=== PATIENT | female | born 1970 | race Caucasian/White ===

== ENCOUNTER 2019-05-11 07:06 | Day surgery (SDC) | payer OTHER, SELFPAY ==
--- NOTE | 2019-05-11 06:50 | W.PM.DSUDISC ---
Discharge Plan Disposition Patient Disposition: HOME Condition: Good Discharge Details Reason For Visit: RIGHT Trigger Thumb Attending Provider: Edwin Gonzalez Primary Care Provider: Gage Jeffrey Home Meds and New Rx's Prescriptions: New acetaminophen 500 mg tablet 1,000 mg PO Q8H PRN (Reason: pain) Qty: 60 RF: 3 ibuprofen 600 mg tablet 600 mg PO TID PRNQty: 60 RF: 3 Continued Mirena 1 EACH intrauterine device 1 ea Intrauterine ONCE RF: 0 Discharge Instructions Stand Alone Forms: Carlos Melgar Finger Release Referrals: Edwin Gonzalez MD [ [facility] STAFF PHYSICIAN] - Activity:: Elevate Remove Dressings/Wound Care:: 48 hours Shower/Bathe:: 48 hours Discharge Orders Discharge Orders: Discharge Order (Routine); Ordered 05/11/19 Ordered By: Edwin Gonzalez DS: Diagnosis Discharge Diagnosis (1) Trigger finger: Status: Acute
[2019-05-11 07:14] VITALS: BP 133/89; PULSE 77; RESP 16; TEMP 37.5; O2SAT 97
[2019-05-11] MEDS: Sodium Bicarbonate 50 MEQ/50 ML VIAL (08:24)
--- NOTE | 2019-05-11 08:33 | ROE_ITS ---
Date of service: 05/11/19 Time of Service: 08:33 Operative Note Operative Note DATE OF PROCEDURE: 05/11/19 PRE-OP DIAGNOSIS: Right Trigger Thumb POST-OP DIAGNOSIS: same PROCEDURE: Trigger Finger Release - Right Thumb SURGEON: Edwin Gonzalez ANESTHESIA: local ESTIMATED BLOOD LOSS: 5 PATHOLOGY: none sent COMPLICATIONS: None Patient was transported to: same day Patient's condition: stable Indications: I have seen Bridgette in clinic for symptoms of a trigger finger. The catching, clicking, locking, and pain limited function. The diagnosis of trigger finger was evident. The symptoms had not responded to conservative measures. I discussed trigger finger release with the patient. I reviewed the risks of the procedure to include, but not limited to, bleeding, infection, pain, stiffness, incomplete release, damage to nerves or vessels, continued catching, recurrence. Despite these risks, the patient elected to proceed. Findings: There was a tightened A1 emily which was released. The flexor tendons were inspected and the patient was able to move the thumb without any catching, clicking, or locking. There was some fraying of the flexor tendon which was debrided. Procedure Description: Bridgette was greeted in the preoperative holding area where the correct side was identified and marked. The consent was reviewed with the patient and signed. All questions were answered. She was taken back to the operating room. The patient was placed into the supine position on the operating room table with the right arm on an arm board. All bony prominences were well padded. No prophylactic antibiotics were administered since this was a clean, elective hand surgical case. The right arm was then prepped with Chloraprep and draped in a standard fashion with stockinette and extremity drape. A timeout to confirm correct identity, side and site, procedure, allergies, anesthesia, and medical concerns was performed. The surgical site was marked as a longitudinal incision directly over the A1 emily of the involved digit. This was confirmed with palpation during finger flexion. This area, overlying the metacarpal head, was then anesthetized with 1% Lidocaine. The patient tolerated this well and once the anesthetic had setup, the procedure began. A longitudinal incision was made through skin only, approximately 1cm. The deep tissues were dissected bluntly. Once the A1 emily and flexor tendons were identified the soft tissue including neurovascular structures were retracted medially and laterally. There were no crossing structures over the A1 emily. The proximal edge of the emily was identified and the emily was incised with tenotomy scissors. The emily was very thickened and difficult to release. There was a visible release of the tendons once the pully was fully incised. The tendons were then removed from the wound and inspe cted. There was some fraying identified which was debrided sharply. The tendons were then returned and the patient was asked to move the finger into deep flexion and back to extension. There was no recreation of the pre- operative symptoms. The hand was then once more inspected for any A0 emily or area of possible constriction. The wound was then irrigated and the skin was closed with a 4-0 Nylon. This was dressed with gauze and a Conform dressing. The patient tolerated the procedure well and was returned to the Same Day Surgery area in a stable condition suffering no known complication.
[2019-05-11 09:00] VITALS: BP 134/92; PULSE 70; RESP 18; TEMP 36.6; O2SAT 99
--- NOTE | 2019-05-11 11:03 | NUR.NOTE ---
Nursing Note: This nurse forgot to give an apt card for the pt's follow up apt time with [facility]. This nurse called the pt's cell phone and left a message stating that the date and time of her follow up was 05/19 at 0930. The number for both [facility] and the DSU was left on the message.
== END 2019-05-11 09:05 | disposition home or self-care (01) ==
LOC: SUR 07:06
PROVIDERS: PCP Internal Medicine Sleep Medicine; Visit Provider Student in an Organized Health Care Education/Training Program
PROC: (CPT 26055; principal; 2019-05-11 08:15)
DX: M65.311 Trigger thumb, right thumb (principal)
CPT/HCPCS: 26055

== ENCOUNTER 2019-06-09 09:04 | Outpatient (REF) | payer OTHER, SELFPAY ==
--- NOTE | 2019-06-09 08:20 | PAPFT_PTH ---
PATIENT: Bridgette Rondon LOC: [facility] U#:[id number] AGE/SX: 48/F ROOM: RE06/09/[address]: BETITO Alvarez : 1970 BED: DIS: 06/09/2019 SPEC #: [id number] RECD: 06/10/19 12:55 STATUS: LINO REPascual #: [id number] TG: 06/09/19 08:[address]: Kinsey Ewing DEPT: [facility] Cytology RECD BY: Mony Daniels ENTERED: 06/10/19 12:55 SP TYPE: PAPFT OTHR DR: Gage Jeffrey Tissues: 1 - CX/ENDOCX FOR PAP SMEARS Procedures: PAP THIN PREP/UVM Screening HPV DNA PROBE Comments: [id number]
[2019-06-10 13:56] LABS: Chlamydia Result Negative (Negative); GC Result Negative (Negative)
== END 2019-06-09 09:24 ==
LOC: LBN 09:04
PROVIDERS: PCP Internal Medicine Sleep Medicine; Visit Provider Nurse Practitioner Family
DX: Z11.3 Encounter for screening for infections with a predominantly sexual mode of transmission (principal); Z12.4 Encounter for screening for malignant neoplasm of cervix
CPT/HCPCS: 87491; 87591; 88142; 87624

== ENCOUNTER 2019-07-11 01:33 | Outpatient (CLI) | payer OTHER, SELFPAY ==
--- NOTE | 2019-07-11 08:00 | DI.MAMMO_ITS ---
EXAM: MG MAMMO SCREENING CLINICAL HISTORY: screening. TECHNIQUE: Full field digital CC and MLO mammographic images were obtained with 3D tomosynthesis and utilizing computer aided detection (CAD). COMPARISON: 2010 to 2017 FINDINGS: Breast Density - Category B - Scattered areas of fibroglandular density Masses/Architectural Distortion: None seen. Microcalcifications: No suspicious pleomorphic-type calcifications are seen. Skin Thickening/Nipple Retraction: None. Axilla: Unremarkable. IMPRESSION: 1. BI-RADS category 1, negative. No significant interval change with no specific features of maligna ncy noted. 2. Unless there is more urgent need, screening mammography is recommended, as per [employer] guidelines. A negative radiographic report should not delay biopsy if a dominant or clinically suspicious mass is present. Up to ten percent of cancers are not identified on mammography. A negative report may reinforce clinical impression. Adenosis and dense breasts may obscure an underlying neoplasm. False positive reports average 6 to 10%. Patient will receive a letter notifying them of these results.
== END 2019-07-11 01:53 ==
PROVIDERS: PCP Family Medicine; Visit Provider Nurse Practitioner Family
DX: Z12.31 Encounter for screening mammogram for malignant neoplasm of breast (principal)
CPT/HCPCS: 77063; 77067

== ENCOUNTER 2021-01-31 06:39 | Emergency (ER) | payer OTHER, SELFPAY ==
[2021-01-31 06:42] VITALS: BP 168/111; PULSE 87; RESP 18; TEMP 36.3; O2SAT 97
--- NOTE | 2021-01-31 06:45 | RT.EKG_ITS ---
APPROVED REPORT Exam: Resting ECG Reason for Exam: HTN Patient Location: E HR:69 bpm ECG Measurements Heart Rate 69 AXIS VA 137 P 36 QRSd 80 QRS 0 QT 373 T 13 QTc 399 Conclusion Sinus rhythm...normal P axis, V-rate 60- 99 Rate 69, sinus rhythm, no significant ST elevations or depressions. Inverted T waves present in lead III, questionable Q wave in lead III. No STEMI
--- NOTE | 2021-01-31 07:07 | ED.GENADUL_ITS ---
Discharge Plan Disposition Patient Disposition: HOME Condition: Good Discharge Details Clinical Impression: Fatigue, Malaise Primary Care Provider: Tino Donnelly ED Provider: Adryan Yip Home Meds and New Rx's Prescriptions: No Action No Known Home Meds RF: 0 Discharge Instructions Additional Instructions: Please follow-up with your primary care provider at your scheduled appointment today. We did send some test that will not be back for a few days, including a tickborne illness and Lyme disease panel. Please follow-up with your primary care provider about these results. If you notice any worsening of your symptoms, or any new symptoms such as vomiting, diarrhea, fever, chills, shortness of breath, chest pain, numbness, weakness, or fainting , please return immediately to the emergency department for reevaluation. Please follow up with your primary care provider as soon as possible for reassessment and reevaluation. As always, it was a pleasure pa rticipating in your medical care today. Referrals: Tino Donnelly [Primary Care Provider] - Medical Decision Making <Elier Chaves DO - Last Filed: 01/31/21 07:29> 50-year-old female with no significant past medical history presents today for evaluation of malaise, nausea. Feeling unwell. Patient states that 2 months ago she had her IUD removed. Since then every time she has had. She becomes very fatigued and has the symptoms of mild headache nausea and feeling unwell. She has also noticed that her blood pressure has been elevated. She admits to a single episode of vomiting, she denies any diarrhea or fever. She denies any chest pain or shortness of breath. She denies any numbness, tingling, or focal weakness. Her menses have been heavier than normal, but she denies any excessive bleeding. In the distant past she had a history of thyroid dysfunction but states that this is 6 now. She denies any other complaints. No other modifying factors. Exam demonstrates no focal neurologic deficits, no abdominal tenderness, normal lung sounds. No thyromegaly. Uncertain as to what the exact cause of the patient's symptomatology is, symptoms appearing consistent with a hypertensive emergency. Thyroid dysfunction cardiac etiology is highest on the list. Viral etiology and tickborne illness is also in the differential. We will gently rehydrate, evaluate for concerning etiologies, monitor closely and reassess. EKG 7: 40 Rate 69, sinus rhythm, no significant ST elevations or depressions. Inverted T waves present in lead III, questionable Q wave in lead III. No STEMI. <Adryan Yip MD - Last Filed: 01/31/21 08:31> pt's labs unremarkable and remains stable, has mild headache and no other significant symptoms, headache is not thunderclap and not the worst of her life, no fevers or neck stiffness and no meningismus so doubt ich and emergency room tech infection at this time. Discussed jose carlos results with patient and she is comfortable with d/c and has f/u today with pcp and will recheck BP. Return precautions given Lab Data Lab results reviewed: Yes I reviewed the patient's lab results. HPI <Elier Chavse DO - Last Filed: 01/31/21 07:29> General Date/Time Provider Initiated Documentation: 01/31/21 06:52 . HPI Narrative: 50-year-old female with no significant past medical history presents today for evaluation of malaise, nausea. Feeling unwell. Patient states that 2 months ago she had her IUD removed. Since then every time she has had. She becomes very fatigued and has the symptoms of mild headache nausea and feeling unwell. She has also noticed that her blood pressure has been elevated. She admits to a single episode of vomiting, she denies any diarrhea or fever. She denies any chest pain or shortness of breath. She denies any numbness, tingling, or focal weakness. Her menses have been heavier than normal, but she denies any excessive bleeding. In the distant past she had a history of thyroid dysfunction but states that this is 6 now. She denies any other complaints. No other modifying factors. 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 Surgical History colonoscopy (~2001) Open Carpal Tunnel release 1995 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 Family History Mother Lymphoma Father Personal history of malignant neoplasm Other Diabetes Social History Smoking/Tobacco Use Status: Former Tobacco Use Smoking risk assessment performed?: Yes Alcohol Intake: current Alcohol Intake frequency: a few times a week Drug use: Daily Substance use type: marijuana Do you feel safe at home: Yes Do you feel safe in your relationship?: Yes Female Reproductive History Menstrual control method: progestin IUCD Exam <Elier Chaves DO - Last Filed: 01/31/21 07:29> Narrative Exam Narrative: 1.Const: Well-nourished, Well-developed, appearing stated age 2.Eyes: PERRL, no conjunctival injection, and symmetrical lids. 3.ENT: Atraumatic external nose and ears. Moist MM. Neck: Symmetric, trachea midline, No thyromegaly. 4.CVS: +S1/S2, No murmurs or gallops. Peripheral pulses 2+ and equal in all extremities. Brisk capillary refill in all extremities. 5.RESP: Unlabored respiratory effort. Clear to auscultation bilaterally. No wheezes rales or rhonchi 6.GI: Soft, Nontender/Nondistended, No hepatosplenomegaly. No guarding or rebound. 7.MSK: Normocephalic/Atraumatic, Extremities w/o deformity or ttp No cyanosis or clubbing, Normal movement of all extremities 8.Skin: Warm, Dry. No rashes or lesions. 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 Sensation grossly intact, no focal neurologic deficits. 10.Psych: (AAO) x3. Appropriate mood and affect Course <Elier Chaves DO - Last Filed: 01/31/21 07:29> Vital Signs Vital signs: Vital Signs Temperature 36.3 C L 08/19/21 06:42 Pulse 87 01/31/21 06:42 Respiratory Rate 18 01/31/21 06:42 Blood Pressure 168/111 H 01/31/21 06:42 Pulse Oximetry 97 01/31/21 06:42 Temperature 36.3 C L 01/31/21 06:42 Temperature Source Temporal Artery Scan 01/31/21 06:42 Pulse 87 01/31/21 06:42 Respiratory Rate 18 01/31/21 06:42 Respiratory Effort Non-Labored 01/31/21 06:50 Blood Pressure 168/111 H 01/31/21 06:42 Blood Pressure Position Sitting 01/31/21 06:42 Pulse Oximetry 97 01/31/21 06:42 Oxygen Delivery Method Room Air 01/31/21 06:42 Oxygen Flow Rate 0 01/31/21 06:42 Pain Level 6 01/31/21 06:42 Sign Out <Elier Chaves DO - Last Filed: 01/31/21 07:29> Sign Out Data: Sign Out Comment: Follow-up on labs, expected discharge Last updated by Elier Chaves DO at 01/31/21 07:45
[2021-01-31] MEDS: Normal Saline 500 ML IV (07:29)
[2021-01-31 07:30] VITALS: RESP 18
[2021-01-31 07:38] LABS: Abs Immature Grans 0.02 10^3/uL (0.0-0.06); Absolute Basophil Count 0.09 10^3/uL (0.0-0.2); Absolute Eosinophil Count 0.17 10^3/uL (0.0-0.7); Absolute Lymphocyte Count 2.04 10^3/uL (1.2-3.4); Absolute Monocyte Count 0.64 10^3/uL (0.1-0.8); Absolute Neutrophil Count 4.52 10^3/uL (1.2-6.7); Basophils % 1.2; Eosinophils % 2.3; HCT 44.8 % (36.0-46.0); HGB 14.8 g/dL (11.2-15.7); Immature Grans % 0.3; Lymphocytes % 27.3; MCV 90.7 fL (80-95); MPV 9.6 fL (8.0-11.0); Monocytes % 8.6; Neutrophils % 60.3; Nucleated RBC 0 %; Platelet Count 332 10^3/uL (130-400); RBC 4.94 10^6/uL (3.93-5.22); RDW 12.5 % (11.7-14.6); RDW-SD 41.7 fL; WBC 7.48 10^3/uL (4.4-10.8)
[2021-01-31 07:49] LABS: Bilirubin Negative (Negative); Blood Negative (Negative); Clarity Clear (Clear); Glucose Negative (Negative); Ketones Negative (Negative); Leukocyte Esterase Negative (Negative); Nitrite Negative (Negative); Urobilinogen 0.2 EU/dL (Up TO 0.2); pH 5.5 (5-8)
[2021-01-31 07:51] LABS: Mono Screening Negative (Negative)
[2021-01-31 07:57] LABS: Lipase 99 U/L (73-393)
[2021-01-31 07:59] LABS: ALT 28 U/L (14-59); AST 17 U/L (15-37); Albumin 3.6 g/dL (3.4-5.0); Alkaline Phosphatase 59 U/L (46-116); Anion Gap 6.8 mmol/L (3-11); BUN 8 mg/dL (7-18); Bilirubin, Total 0.4 mg/dL (0.2-1.0); CO2 27.2 mmol/L (21.0-32.0); CREATININE 0.7 mg/dL (0.55-1.02); Calcium 8.5 mg/dL (8.5-10.1); Chloride 105 mmol/L (98-107); Glucose 102 mg/dL (74-106); Potassium 3.9 mmol/L (3.5-5.1); Sodium 139 mmol/L (136-145); Total Protein 7.1 g/dL (6.4-8.2)
[2021-01-31 08:04] LABS: Ammonia < 10 umol/L (11-32); Troponin I < 0.05 ng/mL (<0.06)
[2021-01-31] MEDS: Ondansetron 4 MG/2 ML VIAL (08:07)
[2021-01-31 08:11] LABS: TSH (W/Ref FT4) 3.11 uIU/mL (0.36-3.74)
[2021-01-31 08:31] VITALS: BP 120/61; PULSE 66; RESP 20; TEMP 36.1; O2SAT 99
[2021-01-31 08:38] VITALS: BP 154/101; PULSE 70; O2SAT 97
[2021-02-01 11:23] LABS: Lyme Ab w Rflx to Lyme Confirm Negative (Negative)
[2021-02-02 21:21] LABS: Anaplasma phagocytophilum Negative (Negative); B. miyamotoi PCR Negative (Negative); Babesia divergens/MO-1 Negative (Negative); Babesia duncani Negative (Negative); Babesia microti Negative (Negative); Ehrlichia chaffeensis Negative (Negative); Ehrlichia ewingii/canis Negative (Negative); Ehrlichia muris eauclairensis Negative (Negative)
== END 2021-01-31 08:45 | disposition home or self-care (01) ==
PROVIDERS: Student in an Organized Health Care Education/Training Program; Emergency Provider Emergency Medicine; PCP Family Medicine
DX: R53.83 Other fatigue (principal); I10 Essential (primary) hypertension; R53.81 Other malaise; R51.9 Headache, unspecified
CPT/HCPCS: 36415; 80053; 81025; 83690; 87798; 93005; 96361; 96374; 99284; 81003; 82140; 84443; 84484; 85025; 86308; 86618; 93010; J2405

== ENCOUNTER 2021-02-06 01:46 | Outpatient (CLI) | payer OTHER, SELFPAY ==
--- NOTE | 2021-02-06 06:45 | DI.MAMMO_ITS ---
Exam(s) MAMMO SCREENING EXAM: MAMMO SCREENING CLINICAL HISTORY: screening, Z12.39. TECHNIQUE: Bilateral full field digital CC and MLO mammographic images were obtained with 3D tomosyn thesis and utilizing computer aided detection (CAD). COMPARISON: Prior mammograms dating back to 2010, the most recent being June 2019. FINDINGS: There are no CAD designations No new significant radiograph findings in right breast. In the left breast there are 2 nodular densities. The more posterior in larger of these 2 is unchang ed from prior studies. More anteriorly there is a round noncalcified 4 millimeter nodule located 6 cm in from the nipple on the 3D cc view, not evident on prior mammograms. Spot compression view and ultrasound recommended. Malignant-appearing microcalcification groups in this region or elsewhere in either breast. There is no new architectural distortion or skin thickening-traction. IMPRESSION: 1. No radiographic evidence of malignancy in right breast 2. 4 millimeter left breast nodule now evident, this located 6 cm in from nipple seen on the CC view. Recommend ultrasound determine if this is solid or cystic. A slightly larger nodule more posterior ly in the left breast is unchanged from prior studies BI-RADS Category 0 - Assessment Incomplete: Need additional imaging evaluation Breast Density - Category B - Scattered areas of fibroglandular density Breast density Category C or D implies that the patient has dense breast tissue. Dense breast tissue can make it harder to find cancer on a mammogram. Dense breast tissue is also associated with an incr eased risk of breast cancer. This information about the result of the mammogram report was provided to the patient to raise their awareness. Use this report when you speak with the patient about their risks for breast cancer, which includes their family history. At that time, you may recommend additional screening tests (Ultrasoun d or MRI) as these tests may add significant information. A negative radiographic report should not delay biopsy if a dominant or clinically suspicious mass is present. Up to ten percent of cancers are not identified on mammography. A negative report may reinforce clinical impression. Adenosis and dense breasts may obscure an underlying neoplasm. False positive reports average 6 to 10%. Patient will receive a letter notifying them of these results.
== END 2021-02-06 02:06 ==
PROVIDERS: PCP Family Medicine; Visit Provider Nurse Practitioner Family
DX: Z12.31 Encounter for screening mammogram for malignant neoplasm of breast (principal); R92.8 Other abnormal and inconclusive findings on diagnostic imaging of breast; N63.20 Unspecified lump in the left breast, unspecified quadrant
CPT/HCPCS: 77063; 77067

== ENCOUNTER 2021-02-12 01:53 | Outpatient (CLI) | payer OTHER, SELFPAY ==
--- NOTE | 2021-02-12 | DI.MAMMO_ITS ---
Exam(s) MG MAMMO SCREEN CALL BACK UNI US BREAST LT LIMITED EXAM: MG MAMMO SCREEN CALL BACK UNI and U/S breast LT limited CLINICAL HISTORY: F/U MAMMO, NEW 4 MM LT BREAST NODULE,UNCHANGED PREVIOUS NODULE. TECHNIQUE: Craniocaudal and mediolateral oblique Full Field Digital Mammography views of the left br east with Computer Aided Diagnosis followed by Tomosynthesis and left breast ultrasound. COMPARISON: Priors available for comparison. FINDINGS: Mammography/Tomosynthesis: Masses/Architectural Distortion: The posterior central left breast nodule is again visualized and is unchanged compared to the prior examination. The more anteriorly described nodule is not visualized on the additional views. Microcalcifictions: No suspicious pleomorphic-type are seen. Skin Thickening/Nipple Retraction: None. Left breast US: All 4 quadrants and the left axilla were evaluated sonographically. Echotexture: Normal appearance of the glandular tissue. Shadowing: No suspicious foci. Cyst: There is a septated cyst at the 11 o'clock position of the left breast measuring 0.4 x 0.2 x 0. 4 cm. Solid lesions: None seen. Ductal dilation: None. IMPRESSION: 1. No evidence of malignancy is noted. 2. A six-month follow-up left mammogram is recommended for re-evaluation. 3. The findings were discussed with the patient on the date of the examination. BI-RADS Category 3 - 6 month - Probably Benign Finding: Recommend follow-up imaging in 6 months Breast Density - Category B - Scattered areas of fibroglandular density Breast density Category C or D implies that the patient has dense breast tissue. Dense breast tissue can make it harder to find cancer on a mammogram. Dense breast tissue is also associated with an incr eased risk of breast cancer. This information about the result of the mammogram report was provided to the patient to raise their awareness. Use this report when you speak with the patient about their risks for breast cancer, which includes their family history. At that time, you may recommend additional screening tests (Ultrasoun d or MRI) as these tests may add significant information. A negative radiographic report should not delay biopsy if a dominant or clinically suspicious mass is present. Up to ten percent of cancers are not identified on mammography. A negative report may reinforce clinical impression. Adenosis and dense breasts may obscure an underlying neoplasm. False positive reports average 6 to 10%. Patient will receive a letter notifying them of these results.
== END 2021-02-12 02:13 ==
PROVIDERS: PCP Family Medicine; Visit Provider Nurse Practitioner Family
DX: R92.8 Other abnormal and inconclusive findings on diagnostic imaging of breast (principal); N60.02 Solitary cyst of left breast
CPT/HCPCS: 76642; 77063; 77067

== ENCOUNTER 2021-08-14 01:05 | Outpatient (CLI) | payer OTHER, SELFPAY ==
--- NOTE | 2021-08-14 06:45 | DI.MAMMO_ITS ---
Exam(s) MG MAMMO DIAGNOSTIC UNI EXAM: MAMMO DIAGNOSTIC UNI CLINICAL HISTORY: 6 month f/u left mammogram,r92.8 TECHNIQUE: Mammograms were interpreted according to the usual protocol including computer analysis w ith CAD system, tomosynthesis and C-view imaging. COMPARISON: FINDINGS: Left breast mammogram was obtained to follow questionable area of nodularity seen on prior mammogram of January 2021. The nodularity is less prominent on today's examination. No new mass or clumped nabor rocalcification seen. IMPRESSION: No specific evidence of malignancy at this time. I would suggest that routine screening examinations resume with a bilateral mammogram in 6 months. BI-RADS Category 3 - 6 month - Probably Benign Finding: Recommend follow-up mammography in 6 months Breast Density - Category B - Scattered areas of fibroglandular density
== END 2021-08-14 01:25 ==
LOC: DI 01:06
PROVIDERS: PCP Nurse Practitioner Acute Care; Visit Provider Nurse Practitioner Family
DX: R92.8 Other abnormal and inconclusive findings on diagnostic imaging of breast (principal)
CPT/HCPCS: 77061; 77065; G0279

== ENCOUNTER 2022-07-17 02:09 | Outpatient (CLI) | payer BC, OTHER, SELFPAY ==
--- NOTE | 2022-07-17 | DI.MAMMO_ITS ---
Exam(s) MAMMO SCREENING EXAM: MAMMO SCREENING CLINICAL HISTORY: SCREENING MAMMO Z12.39 TECHNIQUE: Mammograms were interpreted according to the usual protocol including computer analysis w [employer] CAD system, tomosynthesis and C-view imaging. COMPARISON: 2013 through 2021 FINDINGS: The breasts are composed of scattered fibroglandular densities, Breast Density category B. No suspicious masses or suspicious microcalcifications are seen. No skin thickening or abnormal axillary lymph nodes are seen. There has been no significant change from prior exams. IMPRESSION: BI-RADS Category 1, Negative mammogram Yearly screening mammography is recommended. Breast Density - Category B, scattered fibroglandular densities. A negative radiographic report should not delay biopsy if a dominant or clinically suspicious mass is present. Up to ten percent of cancers are not identified on mammography. A negative report may reinforce clinical impression. Adenosis and dense breasts may obscure an underlying neoplasm. False positive reports average 6 to 10%. Patient will receive a letter notifying them of these results.
== END 2022-07-17 02:29 ==
PROVIDERS: PCP Nurse Practitioner Acute Care; Visit Provider Obstetrics & Gynecology
DX: Z12.31 Encounter for screening mammogram for malignant neoplasm of breast (principal)
CPT/HCPCS: 77063; 77067

== ENCOUNTER 2023-04-21 09:57 | Outpatient (CLI) | payer OTHER, SELFPAY ==
[2023-04-21 08:18] LABS: TSH (W/Ref FT4) 4.26 uIU/mL (0.36-3.74)
[2023-04-21 08:42] LABS: FREE T4 0.92 ng/dL (0.76-1.46)
[2023-04-21 19:42] LABS: FSH 12.3 mIU/mL (See Note)
== END 2023-04-21 09:58 | disposition home or self-care (01) ==
LOC: LBO 09:58
PROVIDERS: PCP Nurse Practitioner Acute Care; Visit Provider Obstetrics & Gynecology
DX: N93.8 Other specified abnormal uterine and vaginal bleeding; N83.201 Unspecified ovarian cyst, right side; N83.02 Follicular cyst of left ovary
CPT/HCPCS: 36415; 83001; 84439; 84443

== ENCOUNTER 2023-07-21 04:36 | Outpatient (CLI) | payer OTHER, SELFPAY ==
--- OUTSIDE RECORDS SUMMARY | 2023-07-21 04:37 | XMS_ITS | Continuity of Care Document ---
Author Name Unknown Organization [facility] Address [address] [place] [address] Care Team Providers Care Ui Application Developer Name Role Phone CLARICE WELSH Primary Care Physician [phone] Encounter [facility] NBR [id number] Date(s): 04/28/22 - 04/28/22 [facility] [address] [place] [address]- Discharge Disposition: Home or Self Care Attending Physician: Ilan Yanes MD Admitting Physician: Ilan Yanes MD Referring Physician: Ilan Yanes MD Allergies, Adverse Reactions, Alerts Substance Reaction Severity Status shellfish Vomiting Unknown Severe Active Medications metoprolol succinate 50 mg oral tablet, extended release 50 mg = 1 tab, Oral, Daily, 1 Unknown, 0 Refill(s) Start Date: 04/27/22 Status: Ordered promethazine 25 mg rectal suppository BID, 1 Unknown, 0 Refill(s) Start Date: 04/27/22 Status: Ordered SUMAtriptan 50 mg oral tablet 50 mg = 1 tab, Oral, Daily, PRN as needed for migraine headache, may repeat dose after 2 hours up to a maximum of 200 mg in 24 hours, # 9 tab, 0 Refill(s) Start Date: 04/27/22 Status: Ordered Tylenol Extra Strength 500 mg oral tablet 2 Unknown, 0 Refill(s) Start Date: 04/27/22 Status: Ordered Problem List Condition Confirmation Course Effective Dates Status Health St atus Informant Anxiety 1 Confirmed Active Corneal ectasia Confirmed Active Migraine Confirmed Active Psoriasis Confirmed Active Vertigo Confirmed Active 1with panic attacks Procedures Procedure Date Related Diagnosis Body Site Status Release of trigger thumb 06/09/19 Completed Carpal tunnel release 1995 Com pleted Flexible sigmoidoscopy Co mpleted Knee replacement 1 Comple guillermo and 09/30/2016 Results Radiology Reports * Exam Date Time Procedure Performing Provider Status 04/28/22 1:57 PM US Pelvic Complete Marleny Talavera; Jessica h (Verified) Notes: (US Pelvic Complete) Reason For Exam: abn uterine bleeding US Pelvic Complete EXAM DESCRIPTION: US Pelvic Complete 04/28/2022 INDICATION: ABN UTERINE BLEEDING TECHNIQUE: Transabdominal and transvaginal Grayscale and color Doppler ultrasound examination of the pelvis. COMPARISON: None FINDINGS: The uterus measures 6.1 cm x 8.6 cm x 7.1 cm. Ovoid intermediate echogenicity lesions in the myometrium consistent with fibroids, the largest in the right aspect of the uterine fundus measuring approximately 2.9 x 2.9 x 1.8 cm. Ovoid hypoechoic lesion abutting the endometrium with increased echogenicity along its peripheral margin suspicious for submucosal fibroid measuring approximately 2.5 x 2.4 x 1.9 cm. The possibility that this lesion represents an endometrial polyp is considered less likely. Endometrial stripe thickness is 8.4 mm. The left ovary measures approximately 4.1 x 3.3 x 3.1 cm. Ovoid anechoic lesion on the left ovary measuring 2.9 x 2.5 x 2.5 cm consistent with simple cyst. The right ovary measures 1.9 cm x 3.9 cm x 3.7 cm. No solid or cystic right adnexal mass. Color-flow analysis demonstrated bilateral ovarian blood flow No free fluid. IMPRESSION: Uterine fibroids with submucosal fibroid suspected as detailed above Simple left ovarian cyst measuring 2.9 x 2.5 x 2.5 cm. No free fluid. JOB #: [id number] Final Signed by: Remy Syed MD Signed (Electronic Signature): 04/28/2022 2:12 pm Social History Social History Type Response Smoking Status Smoking tobacco use: Never tobacco user;Never entered on: 04/28/22 Sex Female US Pelvis * Remy Syed MD: VERIFY, VERIFY Event Display: Report EXAM DESCRIPTION: US Pelvic Complete 04/28/2022 INDICATION: ABN UTERINE BLEEDING TECHNIQUE: Transabdominal and transvaginal Grayscale and color Doppler ultrasound examination of the pelvis. COMPARISON: None FINDINGS: The uterus measures 6.1 cm x 8.6 cm x 7.1 cm. Ovoid intermediate echogenicity lesions in the myometrium consistent with fibroids, the largest in the right aspect of the uterine fundus measuring approximately 2.9 x 2.9 x 1.8 cm. Ovoid hypoechoic lesion abutting the endometrium with increased echogenicity along its peripheral margin suspicious for submucosal fibroid measuring approximately 2.5 x 2.4 x 1.9 cm. The possibility that this lesion represents an endometrial polyp is considered less likely. Endometrial stripe thickness is 8.4 mm. The left ovary measures approximately 4.1 x 3.3 x 3.1 cm. Ovoid anechoic lesion on the left ovary measuring 2.9 x 2.5 x 2.5 cm consistent with simple cyst. The right ovary measures 1.9 cm x 3.9 cm x 3.7 cm. No solid or cystic right adnexal mass. Color-flow analysis demonstrated bilateral ovarian blood flow No free fluid. IMPRESSION: Uterine fibroids with submucosal fibroid suspected as detailed above Simple left ovarian cyst measuring 2.9 x 2.5 x 2.5 cm. No free fluid. JOB #: [id number] Final Signed by: Remy Syed MD Signed (Electronic Signature): 04/28/2022 2:12 pm Patient Care team information Care Team Personnel Name: CLARICE WELSH Position: No Access Member Role: Primary Care Physician Address: Address: [address] [address]- Name: Ilan Yanes MD Position: Physician - Women's Health Member Role: WHITE HAT HACKER Physician Address: Address: [address] [address]- Care Team Related Persons Name: RAUL HERNANDEZ
--- OUTSIDE RECORDS SUMMARY | 2023-07-21 04:37 | XMS_ITS | Continuity of Care Document ---
Author Name Unknown Organization [facility] Address [address] [place] [address] Care Team Providers Care Museum Preparator Name Role Phone BRADY CABALLERO Primary Care Physician Encounter [facility] NBR [id number] Date(s): 04/28/22 - 04/28/22 [facility] [address] [place], [place] [address] Encounter Diagnosis Menorrhagia with regular cycle(Discharge Diagnosis) - 04/28/22 Dysmenorrhea(Discharge Diagnosis) - 04/28/22 Fibroids, submucosal(Discharge Diagnosis) - 04/29/22 Discharge Disposition: Home or Self Care Attending Physician: Ilan Yanes MD Allergies, Adverse Reactions, Alerts Substance Reaction Severity Status shellfish Vomiting Unknown Severe Active Functional Status 04/28/22 Living Environment Home Environment No qualifying data available Family Member Travel History No recent t ravel Recent Travel History No recent travel Other exposure to Infectious Disease Non e Medications metoprolol succinate 50 mg oral tablet, [...] trigger thumb 06/09/19 Completed Carpal tunnel release 1996 Com pleted Flexible sigmoidoscopy Co mpleted Knee replacement 1 Comple guillermo and 09/30/2016 Vital Signs Most recent to oldest [Reference Range]: 1 Blood Pressure [90-140/60-90 mmHg] 142/8 4mmHg *HI* (04/28/22 2:47 PM) Weight 132.0 kg (04/28/22 2:47 PM) Weight Measured (lbs) 291.01 lb (04/28/22 2:47 PM) Everly Body Weight Calculated 52.563 kg (04/28/22 2:47 PM) Height 160.2 cm (04/28/22 2:47 PM) Height/Length Measured (inches) 63.07 in (04/28/22 2:47 PM) BSA Measured 2.42 m2 (04/28/22 2:47 PM) Body Mass Index 51.43 kg/m2 (04/28/22 2:47 PM) Social History Social History Type Response Smoking Status Smoking tobacco use: Never tobacco user;Never entered on: 04/28/22 Sex Female Physician Outpatient Note * Ilan Yanes MD: PERFORM Event Display: Office Clinic Note Physician Authored Date: [id number] JUAN HERNANDEZ :1970 Age:51 years Sex:Female Visit Date:04/28/2022 Primary Care Physician: BRADY CABALLERO Chief Complaint 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 I saw her November 21 in consultation from Brady Caballero.?? We have discussed hormonal suppressive strategies as well as the Mirena IUD which has helped her significantly in the past in terms of menstrual suppression.?? The IUD was tricky to place making her nervous that she would have difficulties again with its placement.?? I recommended she have a pelvic ultrasound done to see if there is something fixable with her uterus.?? She is leaning toward surgery.?? Since I saw her last??she has continued to have??heavy, crampy cycles.?? Recently her cycles have become??more irregular, skipping in February??and then having 16 days of flow in March. ?? The ultrasound was done today prior to her appointment.?? The uterus measures 6.8 x 8.6 x 7.1 cm.??There are ovoid intermediate echogenicity lesions noted in several locations in the uterus with thelargest measuring 2.9 x 2.9 x 1.8 cm.?? There is 1 of these lesions measuring 2.5 x 2.4 x 1.9 cm that has a margin that is suspicious for a submucosal fibroid.?? There is also possibility that the les ion may be an endometrial polyp but this is less likely.?? The endometrium measured 8.4 mm.?? The left ovary measured 4.1 x 3.3 x 3.1 cm and had a physiologic cyst measuring 2.9 x 2.5 x 2.5 cm.?? Theright ovary measured 1.9 x 3.9 x 3.7 cm and was otherwise within normal limits.?? No other abnormalities on the ultrasound were appreciated. ?? We have looked into??progesterone containing IUDs.?? Her??insurance company will cover??an intrauterine device as well as its placement at 100%. Physical Exam Vitals & Measurements BP:??142/84?? HT:??160.2??cm?? WT:??132.0??kg?? BMI:??51.43?? BSA:??2.42?? Assessment/Plan 1.??Fibroids, submucosal??D25.0 The imaging??done today has been??helpful??overall for giving a clear picture regarding the etiology of her??menorrhagia.?? She is perimenopausal and having cycle irregularities but along with this??she has an anatomical abnormality that is contributing to her menorrhagia.?? She has a??moderately sized fibroid??that has a significant portion of the fibroid??bearing submucosal features.?? This is??undoubtedly??contributing to her menorrhagia.?? The ultrasound images clearly delineate??the??lateral margin??of the??fibroid??in relationship to the serosa??is being relatively??thin. ??It is not resectable??hysteroscopically??as the fibroid comes close to the serosa. 2.??Menorrhagia with regular cycle??N92.0 Despite the submucosal fibroid??she may see significant improvement with a progesterone containing IUD. ??She does have some hesitancy??regarding??IUD placement but??I think??the issues??that may come up during placement would??be related to??the anteverted nature of her uterus.?? I think I can place a Kyleena IUD and she would see??marked improvement.?? She can also consider??removal of the uterus.?? The size fibroid is not??a good candidate for uterine artery embolization??and as noted above it is not resectable.?? Most likely it will continue to cause??struggles in the??perimenopause. ??She will give her options further thought and she will reach out??once she has made a final determination regarding which direction she would like to go. 3.??Dysmenorrhea??N94.5 Problem List/Past Medical History Ongoing Anxiety Corneal ectasia Migraine Morbid obesity Psoriasis Vertigo Historical Procedure/Surgical History ???Release of trigger thumb (06/10/2019)???Carpal tunnel release (1995)???Flexible sigmoidoscopy???Knee replacement Medications metoprolol succinate 50 mg oral tablet, extended release, 50 mg= 1 tab, Oral, Daily promethazine 25 mg rectal suppository, BID SUMAtriptan 50 mg oral tablet, 50 mg= 1 tab, Oral, Daily, PRN Tylenol Extra Strength 500 mg oral tablet Allergies shellfish??(Vomiting, Unknown) Social History Alcohol Current, 1-2 times per week Electronic Cigarette/Vaping Electronic Cigarette Use: Never. 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 Highest education level: Some college. Home/Environment Lives with Significant other. Living situation: Home/Independent. Substance Use Current, Marijuana Tobacco Never tobacco user Tobacco Use:. Never Smokeless Tobacco use:. Family History Cancer: Mother and Father. Hypertension: Mother. Family Member(s): ?? FATHER, at age: Unknown. Cause of : Electronically Signed on 04/29/22 07:35 AM Ilan Yanes MD Patient Care team information Care Team Personnel Name: BRADY CABALLERO Position: No Access Member Role: Primary Care Physician Address: Address: [address] Name: Ilan Yanes MD Position: Physician - Women's Health Member Role: SHINGLES ROOFER HELPER Physician Address: Address: [address] Care Team Related Persons Name: RAUL HERNANDEZ
[2023-07-21 07:29] LABS: HCT 43.1 % (36.0-46.0); MCH 28.6 pg (27.0-33.0); MCHC 32.5 % (32.0-36.0); MCV 88 fL (80-95); MPV 9.7 fL (8.0-11.0); Platelet Count 336 10^3/uL (130-400); RBC 4.89 10^6/uL (3.93-5.22); RDW 13.4 % (11.7-14.6); RDW-SD 43.7 fL; WBC 6.57 10^3/uL (4.4-10.8)
[2023-07-21 07:58] LABS: ALT 28 U/L (14-59); AST 17 U/L (15-37); Albumin 3.4 g/dL (3.4-5.0); Alkaline Phosphatase 35 U/L (46-116); Anion Gap 6.2 mmol/L (3-11); BUN 11 mg/dL (7-18); Bilirubin, Total 0.4 mg/dL (0.2-1.0); CO2 27.8 mmol/L (21.0-32.0); Calcium 8.9 mg/dL (8.5-10.1); Calculated LDL 156 mg/dL (<100); Chloride 105 mmol/L (98-107); Cholesterol 212 mg/dL (<200); Estimated GFR 67.78 (mL/min/1.73m2); Glucose 102 mg/dL (74-106); HDL Cholesterol 41 mg/dL (40-60); Potassium 4.6 mmol/L (3.5-5.1); Sodium 139 mmol/L (136-145); Triglyceride 75 mg/dL (<150)
== END 2023-07-21 04:37 | disposition home or self-care (01) ==
LOC: LBO 04:36
PROVIDERS: PCP Nurse Practitioner Acute Care; Visit Provider Obstetrics & Gynecology
DX: E03.8 Other specified hypothyroidism (principal)
CPT/HCPCS: 36415; 80053; 80061; 85027; 84443

== ENCOUNTER 2023-07-28 15:29 | Outpatient (REF) | payer OTHER, SELFPAY ==
--- NOTE | 2023-07-28 15:30 | PAPFT_PTH ---
PATIENT: Bridgette Rondon LOC: [facility] U#:[id number] AGE/SX: 52/F ROOM: RE07/28/[address]: Ivelisse Gonsales DO : 1970 BED: DIS: 07/28/2023 SPEC #: [id number] RECD: 07/28/23 17:54 STATUS: LINO REQ #: [id number] TG: 07/28/23 15:[address]: Ivelisse Gonsales DEPT: [facility] Cytology RECD BY: Mony Daniels ENTERED: 07/28/23 17:54 SP TYPE: PAPFT OTHR DR: Brady Caballero Tissues: 1 - CX/ENDOCX FOR PAP SMEARS Procedures: PAP THIN PREP/UVM Screening HPV DNA PROBE Comments: [id number]
== END 2023-07-28 15:30 | disposition home or self-care (01) ==
LOC: LBN 15:29
PROVIDERS: PCP Nurse Practitioner Acute Care; Visit Provider Obstetrics & Gynecology
DX: Z12.4 Encounter for screening for malignant neoplasm of cervix (principal); Z11.51 Encounter for screening for human papillomavirus (HPV)
CPT/HCPCS: 88142; 87624

== ENCOUNTER → 2023-08-04 04:19 | Outpatient (CLI) | payer OTHER, SELFPAY ==
--- NOTE | 2023-08-04 08:28 | DI.MAMMO_ITS ---
Exam(s) MAMMO SCREENING EXAM: MAMMO SCREENING CLINICAL HISTORY: screening. TECHNIQUE: Bilateral full field digital CC and MLO mammographic images were obtained with 3D tomosyn thesis and utilizing computer aided detection (CAD). COMPARISON: Prior mammograms were reviewed. FINDINGS: There has been no significant change in the appearance and distribution of the fibroglandular tissue. There are no CAD designations. There are no new spiculated masses nor malignant appearing microcalcification groups. Benign-appearing asymmetric densities in the breasts remain unchanged from prior mammograms. There is no significant architectural distortion nor skin thickening-retraction. IMPRESSION: No radiographic evidence of malignancy. BI-RADS Category 2 - Benign Findings Breast Density - Category B - Scattered areas of fibroglandular density Breast density Category C or D implies that the patient has dense breast tissue. Dense breast tissue can make it harder to find cancer on a mammogram. Dense breast tissue is also associated with an incr eased risk of breast cancer. This information about the result of the mammogram report was provided to the patient to raise their awareness. Use this report when you speak with the patient about their risks for breast cancer, which includes their family history. At that time, you may recommend additional screening tests (Ultrasoun d or MRI) as these tests may add significant information. A negative radiographic report should not delay biopsy if a dominant or clinically suspicious mass is present. Up to ten percent of cancers are not identified on mammography. A negative report may reinforce clinical impression. Adenosis and dense breasts may obscure an underlying neoplasm. False positive reports average 6 to 10%. Patient will receive a letter notifying them of these results.
== END ==
PROVIDERS: PCP Nurse Practitioner Acute Care; Visit Provider Obstetrics & Gynecology
DX: Z12.31 Encounter for screening mammogram for malignant neoplasm of breast (principal)
CPT/HCPCS: 77063; 77067

== ENCOUNTER 2024-05-11 15:07 | Outpatient (REF) | payer OTHER, SELFPAY ==
--- NOTE | 2024-05-11 14:30 | ENDOMET_PTH ---
PATIENT: Bridgette Rondon LOC: [facility] U#:[id number] AGE/SX: 53/F ROOM: RE05/11/[address]: Ivelisse Gonsales DO : 1970 BED: DIS: 05/11/2024 SPEC #: [id number] RECD: 05/11/24 17:44 STATUS: LINO REQ #: [id number] TG: 05/11/24 14:[address]: Ivelisse Gonsales DEPT: Surgical Specimen RECD BY: Mony Daniels ENTERED: 05/11/24 17:45 SP TYPE: Endomet OTHR DR: Brady Caballero Tissues: 1 - ENDOMETRIUM BX/MING Procedures: GROSS AND MICRO LEVEL 4 Comments: [id number]
== END 2024-05-11 15:08 | disposition home or self-care (01) ==
LOC: LBN 15:07
PROVIDERS: PCP Nurse Practitioner Acute Care; Visit Provider Obstetrics & Gynecology
DX: N93.8 Other specified abnormal uterine and vaginal bleeding (principal); D25.9 Leiomyoma of uterus, unspecified
CPT/HCPCS: 88305

== ENCOUNTER 2024-08-08 01:33 | Outpatient (CLI) | payer OTHER, SELFPAY ==
--- NOTE | 2024-08-08 08:09 | DI.MAMMO_ITS ---
Exam(s) MAMMO SCREENING EXAM: MAMMO SCREENING CLINICAL HISTORY: screening,z12.39 TECHNIQUE: Mammograms were interpreted according to the usual protocol including computer analysis w [employer] CAD system, tomosynthesis and C-view imaging. COMPARISON: 2016 through 2023 FINDINGS: The breasts are composed of mainly fatty density , Breast Density category A. No suspicious masses or suspicious microcalcifications are seen. No skin thickening or abnormal axillary lymph nodes are seen. There has been no significant change from prior exams. IMPRESSION: BI-RADS Category 1, Negative mammogram Yearly screening mammography is recommended. Breast Density - Category A, fatty density. A negative radiographic report should not delay biopsy if a dominant or clinically suspicious mass is present. Up to ten percent of cancers are not identified on mammography. A negative report may reinforce clinical impression. Adenosis and dense breasts may obscure an underlying neoplasm. False positive reports average 6 to 10%. Patient will receive a letter notifying them of these results.
== END 2024-08-08 01:53 ==
LOC: DI 01:33
PROVIDERS: PCP Nurse Practitioner Acute Care; Visit Provider Obstetrics & Gynecology
DX: Z12.31 Encounter for screening mammogram for malignant neoplasm of breast (principal); R92.313 Mammographic fatty tissue density, bilateral breasts
CPT/HCPCS: 77063; 77067